=== PATIENT | male | born 1995 | race Caucasian/White ===

== ENCOUNTER 2020-04-18 04:31 | Emergency (ER) | payer OTHER ==
[~2020-04-18] VITALS: Ht 180.3 cm; Wt 129.3 kg
[2020-04-18 04:31] VITALS: BP 146/85
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
[2020-04-18 04:42] VITALS: BP 146/85
--- NOTE | 2020-04-18 04:42 | NUR ---
PATIENT BIB [employer]. PATIENT EXAMINED BY DR. ARIZA. PATIENT MEDICALLY CLEARED AND RELEASED IN CUSTODY IN STABLE CONDITION. ORIGINAL PRE-BOOK FORM GIVEN TO OFFICER Shaye HARDIN #[id number].
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
== END 2020-04-18 04:42 ==
LOC: MED 04:31
DX: Z04.3 Encounter for examination and observation following other accident (principal); Z02.89 Encounter for other administrative examinations; Y09 Assault by unspecified means
CPT/HCPCS: 99283

== ENCOUNTER 2023-03-01 15:18 | Emergency (ER) | payer OTHER ==
[~2023-03-01] VITALS: Ht 177.8 cm; Wt 113.4 kg
--- NOTE | 2023-03-01 15:37 | NUR ---
[facility] BED 10
[2023-03-01] MEDS ORDERED: LORazepam 2 MG/ML VIAL ONE (15:40)
[2023-03-01 15:41] VITALS: BP 187/108
[2023-03-01] MEDS ORDERED: LORazepam 2 MG/ML VIAL IVP ONE (15:45)
[2023-03-01] MEDS ORDERED: NACL 0.9% 1,000 ML IV ONE ×2 (15:45→16:35)
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
[2023-03-01 15:57] LABS: BASOPHILS # (AUTO) 0.1 K/uL (0.00-0.22); BASOPHILS % (AUTO) 0.5 % (0.0-2.0); EOSINOPHILS % (AUTO) 0.3 % (0.0-4.0); HEMATOCRIT 37.3 % (36-52); HEMOGLOBIN 12.6 g/dL (12.0-18.0); LYMPHOCYTES # (AUTO) 2.2 K/uL (2.0-11.5); LYMPHOCYTES % (AUTO) 19.2 % (20.5-51.1); MEAN CORPUSCULAR HEMOGLOBIN 30 pg (27-31); MEAN CORPUSCULAR HGB CONC 34 g/dL (33-37); MEAN CORPUSCULAR VOLUME 90.2 fL (80-94); MONOCYTES # (AUTO) 1.1 K/uL (0.8-1.0); MONOCYTES % (AUTO) 9.2 % (1.7-9.3); NEUTROPHILS # (AUTO) 8.3 K/uL (1.8-7.7); NEUTROPHILS % (AUTO) 70.8 % (42.2-75.2); PLATELET COUNT (AUTO) 257 K/uL (140-450); RED BLOOD CELL COUNT(AUTO) 4.14 MIL/uL (4.20-6.10); RED CELL DISTRIBUTION WIDTH 14.1 % (11.6-13.7); WHITE BLOOD COUNT (AUTO) 11.7 K/uL (4.8-10.8)
[2023-03-01 16:07] LABS: ACETONE, SERUM NEGATIVE (NEGATIVE)
[2023-03-01 16:26] LABS: ALBUMIN 3.2 g/dL (3.4-5.0); ANION GAP 11.7 (8-16); ASPARTATE AMINOTRANSFERASE 170 U/L (15-37); CHLORIDE 95 mmol/L (98-107); CREATININE 0.7 mg/dL (0.6-1.3); GFR ARICAN-AMERICAN 173 mL/min (>90); GLUCOSE 115 mg/dL (74-106); LIPASE 199 U/L (73-393); MAGNESIUM 1.6 mg/dL (1.8-2.4); PHOSPHORUS 3.9 mg/dL (2.5-4.9); POTASSIUM 3.7 mmol/L (3.5-5.1); SODIUM SERUM 133 mmol/L (136-145); TOTAL BILIRUBIN 0.7 mg/dL (0.0-1.0); UREA NITROGEN, BLOOD 3 mg/dL (7-18)
[2023-03-01] MEDS ORDERED: MAG SULF 2000 MG/WATER PREMIX 50 ML IV ONE (16:35)
[2023-03-01] MEDS ORDERED: LIB25 PO (18:06)
[2023-03-01 19:00] VITALS: BP 126/73
--- NOTE | 2023-03-01 19:00 | NUR ---
Patient discharged with v/s stable. Written and verbal after care instructions given and explained. Patient alert, oriented and verbalized understanding of instructions. Ambulatory with steady gait. All questions addressed prior to discharge. ID band removed. Patient advised to follow up with PMD. Rx of LIBRIUM given. Patient educated on indication of medication including possible reaction and side effects. Opportunity to ask questions provided and answered.
== END 2023-03-01 19:00 | disposition home or self-care (01) ==
LOC: MED 15:18
DX: F10.239 Alcohol dependence with withdrawal, unspecified (principal); E83.42 Hypomagnesemia; M62.82 Rhabdomyolysis; R74.01 Elevation of levels of liver transaminase levels; Z79.899 Other long term (current) drug therapy; Y90.9 Presence of alcohol in blood, level not specified
CPT/HCPCS: 36415; 80053; 82009; 82550; 82553; 83690; 83735; 84100; 85025; 93005; 96361; 96365; 96366; 96375; 99284; G0482; J2060; J3475; J7030

== ENCOUNTER 2023-08-22 02:00 | Inpatient (IN) | payer OTHER ==
[~2023-08-22] VITALS: Ht 180.3 cm; Wt 90.7 kg
[~2023-08-22 02:00] MED LIST: LIB25 PO
[2023-08-22 02:31] VITALS: BP 172/104; PULSE 85; RESP 17; TEMP 97.6; O2SAT 95
[2023-08-22] MEDS ORDERED: NACL 0.9% 1,000 ML IV ONE (02:45)
[2023-08-22] MEDS ORDERED: HALOPERIDOL IM 5 MG/ML VIAL IM ONE (02:45)
[2023-08-22] MEDS ORDERED: diphenhydrAMINE 50 MG/ML VIAL IVP ONE (02:45)
[2023-08-22] MEDS ORDERED: LORazepam 2 MG/ML VIAL IVP ONE (02:45)
[2023-08-22] MEDS ORDERED: LORazepam 2 MG/ML VIAL ONE (02:51)
[2023-08-22 03:33] LABS: BASOPHILS # (AUTO) 0.1 K/uL (0.00-0.22); BASOPHILS % (AUTO) 1.1 % (0.0-2.0); EOSINOPHILS % (AUTO) 0.6 % (0.0-4.0); HEMATOCRIT 46.9 % (36-52); HEMOGLOBIN 15.6 g/dL (12.0-18.0); LYMPHOCYTES # (AUTO) 2.3 K/uL (2.0-11.5); LYMPHOCYTES % (AUTO) 29.2 % (20.5-51.1); MEAN CORPUSCULAR HEMOGLOBIN 28 pg (27-31); MEAN CORPUSCULAR HGB CONC 33 g/dL (33-37); MEAN CORPUSCULAR VOLUME 83.5 fL (80-94); MONOCYTES # (AUTO) 0.4 K/uL (0.8-1.0); NEUTROPHILS # (AUTO) 5.1 K/uL (1.8-7.7); NEUTROPHILS % (AUTO) 64.1 % (42.2-75.2); PLATELET COUNT (AUTO) 272 K/uL (140-450); RED BLOOD CELL COUNT(AUTO) 5.61 MIL/uL (4.20-6.10); RED CELL DISTRIBUTION WIDTH 18.5 % (11.6-13.7); WHITE BLOOD COUNT (AUTO) 7.9 K/uL (4.8-10.8)
[2023-08-22 03:48] LABS: ALBUMIN 3.9 g/dL (3.4-5.0); ANION GAP 13.3 (8-16); CALCIUM 8.1 mg/dL (8.5-10.1); CREATININE 0.9 mg/dL (0.6-1.3); POTASSIUM 3.3 mmol/L (3.5-5.1); TOTAL PROTEIN, SERUM 7.5 g/dL (6.4-8.2)
[2023-08-22 04:16] LABS: ACETAMINOPHEN < 0.5 ug/ml (10-30); SALICYLATE < 2.8 mg/dL (2.8-20.0)
[2023-08-22] MEDS ORDERED: POTASSIUM CHLORIDE 10 MEQ TABER PO PRN (04:45)
[2023-08-22] MEDS ORDERED: HYDROcodone/APAP 5/325 MG 1 TAB TAB PO PRN (04:45)
[2023-08-22] MEDS ORDERED: ONDANSETRON 4 MG/2 ML VIAL IVP PRN (04:45)
[2023-08-22] MEDS ORDERED: ZOLPIDEM 5 MG TAB PO PRN (04:45)
[2023-08-22] MEDS ORDERED: LORazepam 1 MG TAB PO PRN ×3 (04:45→04:50)
[2023-08-22] MEDS ORDERED: NACL 0.9% 1,000 ML IV SCH (04:45)
[2023-08-22] MEDS ORDERED: MORPHINE SULFATE 4 MG/ML SYR IVP PRN (04:45)
[2023-08-22] MEDS ORDERED: ACETAMINOPHEN 325 MG TAB PO PRN (04:45)
[2023-08-22] MEDS ORDERED: KCL 20 MEQ IN 100 mL PREMIX 200 ML IV PRN (04:45)
[2023-08-22] MEDS ORDERED: MAG SULF 2000 MG/WATER PREMIX 50 ML IV PRN (04:45)
[2023-08-22] MEDS: LORazepam 1 MG TAB PO SCH ×2 (06:15→13:06)
[2023-08-22 07:30] VITALS: O2SAT 95
[2023-08-22] MEDS ORDERED: THIAMINE 100 MG TAB PO SCH (09:00)
[2023-08-22] MEDS ORDERED: MULTIVITAMIN 1 TAB PO SCH (09:00)
[2023-08-22] MEDS ORDERED: ENOXAPARIN 40 MG/0.4 ML SYR SUBQ SCH (09:00)
[2023-08-22] MEDS ORDERED: FOLIC ACID 1 MG TAB PO SCH (09:00)
[2023-08-22] MEDS: GABAPENTIN 300 MG CAP PO SCH ×2 (10:30→13:09)
[2023-08-22] MEDS ORDERED: LORA-476 PO (16:48)
[2023-08-22] MEDS ORDERED: FOLI1TAB89 PO (16:48)
[2023-08-22] MEDS ORDERED: THIA100T45 PO (16:48)
[2023-08-22 17:02] VITALS: PULSE 69; RESP 21; TEMP 98.1
[2023-08-22 17:39] VITALS: BP 132/87; PULSE 81; RESP 18; TEMP 98.4; O2SAT 99
== END 2023-08-22 17:15 | disposition home or self-care (01) | DRG 425 ==
LOC: MED 02:00 → MTU 04:47
PROVIDERS: ADMIT Hospitalist; ATTEND Hospitalist
DX: E87.6 Hypokalemia (principal); F10.239 Alcohol dependence with withdrawal, unspecified; Y90.9 Presence of alcohol in blood, level not specified; Z79.899 Other long term (current) drug therapy
CPT/HCPCS: 36415; 80053; 85025; G0480; G0482; J1200; J1630; J1650; J2060

== ENCOUNTER 2023-08-26 13:22 | Emergency (ER) | payer OTHER ==
[~2023-08-26] VITALS: Ht 185.4 cm; Wt 115.7 kg
[~2023-08-26 13:22] MED LIST changes: +FOLI1TAB89 PO; -LIB25 PO; +LORA-476 PO; +THIA100T45 PO
[2023-08-26 13:50] VITALS: BP 174/111; PULSE 102; RESP 16; TEMP 98; O2SAT 99
[2023-08-26 13:53] VITALS: BP 171/111; PULSE 106; RESP 20; TEMP 98; O2SAT 98
[2023-08-26 14:41] LABS: BASOPHILS # (AUTO) 0.1 K/uL (0.00-0.22); BASOPHILS % (AUTO) 0.7 % (0.0-2.0); EOSINOPHILS % (AUTO) 0.1 % (0.0-4.0); HEMATOCRIT 50.1 % (36-52); HEMOGLOBIN 16.9 g/dL (12.0-18.0); LYMPHOCYTES # (AUTO) 3.8 K/uL (2.0-11.5); LYMPHOCYTES % (AUTO) 38.2 % (20.5-51.1); MEAN CORPUSCULAR HEMOGLOBIN 28 pg (27-31); MEAN CORPUSCULAR HGB CONC 34 g/dL (33-37); MEAN CORPUSCULAR VOLUME 83.3 fL (80-94); MONOCYTES # (AUTO) 0.5 K/uL (0.8-1.0); NEUTROPHILS # (AUTO) 5.6 K/uL (1.8-7.7); PLATELET COUNT (AUTO) 254 K/uL (140-450); RED BLOOD CELL COUNT(AUTO) 6.02 MIL/uL (4.20-6.10); RED CELL DISTRIBUTION WIDTH 18.5 % (11.6-13.7); WHITE BLOOD COUNT (AUTO) 9.9 K/uL (4.8-10.8)
[2023-08-26 14:46] VITALS: O2SAT 98
[2023-08-26 15:11] LABS: ALBUMIN 4.2 g/dL (3.4-5.0); ANION GAP 20.7 (8-16); CALCIUM 8.2 mg/dL (8.5-10.1); CARBON DIOXIDE 23.9 mmol/L (21-32); CREATININE 0.8 mg/dL (0.6-1.3); POTASSIUM 3.6 mmol/L (3.5-5.1); TOTAL BILIRUBIN 0.7 mg/dL (0.0-1.0); TOTAL PROTEIN, SERUM 8.4 g/dL (6.4-8.2)
[2023-08-26] MEDS ORDERED: ACET-10509 PO (22:37)
== END 2023-08-26 14:49 | disposition left against medical advice (07) ==
LOC: MED 13:22
DX: F10.129 Alcohol abuse with intoxication, unspecified (principal); Z79.899 Other long term (current) drug therapy; Y90.8 Blood alcohol level of 240 mg/100 ml or more
CPT/HCPCS: 36415; 80053; 85025; 93005; 99284; G0482

== ENCOUNTER 2023-08-26 18:58 | Emergency (ER) | payer OTHER ==
[~2023-08-26] VITALS: Ht 172.7 cm; Wt 87.1 kg
[2023-08-26 19:05] VITALS: BP 125/81; PULSE 110; RESP 16; TEMP 98; O2SAT 98
[2023-08-26] MEDS ORDERED: NACL 0.9% 1,000 ML IV ONE (20:20)
[2023-08-26 20:41] LABS: BASOPHILS # (AUTO) 0.1 K/uL (0.00-0.22); EOSINOPHILS % (AUTO) 0.1 % (0.0-4.0); HEMATOCRIT 48.9 % (36-52); HEMOGLOBIN 16.2 g/dL (12.0-18.0); LYMPHOCYTES # (AUTO) 4.6 K/uL (2.0-11.5); LYMPHOCYTES % (AUTO) 36.6 % (20.5-51.1); MEAN CORPUSCULAR HEMOGLOBIN 28 pg (27-31); MEAN CORPUSCULAR HGB CONC 33 g/dL (33-37); MEAN CORPUSCULAR VOLUME 83.9 fL (80-94); MONOCYTES # (AUTO) 0.8 K/uL (0.8-1.0); MONOCYTES % (AUTO) 6.6 % (1.7-9.3); NEUTROPHILS % (AUTO) 55.7 % (42.2-75.2); PLATELET COUNT (AUTO) 245 K/uL (140-450); RED BLOOD CELL COUNT(AUTO) 5.83 MIL/uL (4.20-6.10); RED CELL DISTRIBUTION WIDTH 18.3 % (11.6-13.7); WHITE BLOOD COUNT (AUTO) 12.6 K/uL (4.8-10.8)
[2023-08-26 21:20] LABS: ALBUMIN 4.3 g/dL (3.4-5.0); ANION GAP 24.5 (8-16); CALCIUM 8.5 mg/dL (8.5-10.1); CREATININE 0.9 mg/dL (0.6-1.3); POTASSIUM 3.5 mmol/L (3.5-5.1); TOTAL BILIRUBIN 0.7 mg/dL (0.0-1.0); TOTAL PROTEIN, SERUM 8.3 g/dL (6.4-8.2)
[2023-08-26] MEDS ORDERED: KETOROLAC 30 MG/ML VIAL IM ONE (22:00)
[2023-08-26] MEDS ORDERED: LORazepam 1 MG TAB PO ONE (22:35)
[2023-08-26] MEDS ORDERED: ACET-10509 PO (22:37)
[2023-08-27 01:31] VITALS: O2SAT 98
== END 2023-08-26 22:55 | disposition home or self-care (01) ==
LOC: MED 18:58
DX: R07.89 Other chest pain (principal); F41.9 Anxiety disorder, unspecified; M25.511 Pain in right shoulder; F10.129 Alcohol abuse with intoxication, unspecified; Y90.9 Presence of alcohol in blood, level not specified; Z79.899 Other long term (current) drug therapy
CPT/HCPCS: 36415; 71045; 73030; 80053; 84484; 85025; 93005; 96372; 99285; G0482; J1885

== ENCOUNTER 2023-10-31 03:03 | Emergency (ER) | payer OTHER ==
[~2023-10-31] VITALS: Ht 182.9 cm; Wt 81.6 kg
[~2023-10-31 03:03] MED LIST changes: +ACET-10509 PO
[2023-10-31 03:06] VITALS: BP 146/94; PULSE 119; RESP 16; TEMP 97.1; O2SAT 99
[2023-10-31] MEDS ORDERED: ONDANSETRON 4 MG ODT PO ONE (06:50)
[2023-10-31] MEDS ORDERED: chlordiazePOXIDE 25 MG CAP PO ONE (06:50)
[2023-10-31] MEDS ORDERED: NACL 0.9% 1,000 ML IV ONE (06:50)
[2023-10-31 07:32] LABS: BASOPHILS # (AUTO) 0.1 K/uL (0.00-0.22); BASOPHILS % (AUTO) 0.8 % (0.0-2.0); EOSINOPHILS % (AUTO) 0.4 % (0.0-4.0); HEMATOCRIT 46.2 % (36-52); HEMOGLOBIN 15.9 g/dL (12.0-18.0); LYMPHOCYTES # (AUTO) 2.2 K/uL (2.0-11.5); LYMPHOCYTES % (AUTO) 30.1 % (20.5-51.1); MEAN CORPUSCULAR HEMOGLOBIN 30 pg (27-31); MEAN CORPUSCULAR HGB CONC 35 g/dL (33-37); MEAN CORPUSCULAR VOLUME 87.5 fL (80-94); MONOCYTES # (AUTO) 0.3 K/uL (0.8-1.0); NEUTROPHILS # (AUTO) 4.8 K/uL (1.8-7.7); NEUTROPHILS % (AUTO) 64.7 % (42.2-75.2); PLATELET COUNT (AUTO) 272 K/uL (140-450); RED BLOOD CELL COUNT(AUTO) 5.28 MIL/uL (4.20-6.10); RED CELL DISTRIBUTION WIDTH 16.9 % (11.6-13.7); WHITE BLOOD COUNT (AUTO) 7.4 K/uL (4.8-10.8)
[2023-10-31 07:49] LABS: ANION GAP 11.6 (8-16); CALCIUM 8.3 mg/dL (8.5-10.1); CARBON DIOXIDE 26.9 mmol/L (21-32); CREATININE 0.7 mg/dL (0.6-1.3); POTASSIUM 3.5 mmol/L (3.5-5.1)
[2023-10-31 07:55] LABS: ALBUMIN 3.3 g/dL (3.4-5.0); BILIRUBIN,DIRECT 0.2 mg/dL (0.0-0.3); TOTAL BILIRUBIN 0.8 mg/dL (0.0-1.0); TOTAL PROTEIN, SERUM 7.3 g/dL (6.4-8.2)
[2023-10-31] MEDS ORDERED: CHLO-836 PO (08:40)
[2023-10-31 10:46] VITALS: BP 144/88; PULSE 72; RESP 18; TEMP 98.4; O2SAT 97
== END 2023-10-31 10:46 | disposition home or self-care (01) ==
LOC: MED 03:03
DX: S62.347A Nondisplaced fracture of base of fifth metacarpal bone, left hand, initial encounter for closed fracture (principal); F10.239 Alcohol dependence with withdrawal, unspecified; E11.9 Type 2 diabetes mellitus without complications; Z79.899 Other long term (current) drug therapy; Y90.6 Blood alcohol level of 120-199 mg/100 ml; W22.8XXA Striking against or struck by other objects, initial encounter; Y92.89 Other specified places as the place of occurrence of the external cause; Y93.89 Activity, other specified; Y99.8 Other external cause status
CPT/HCPCS: 29125; 36415; 73130; 80048; 80076; 83690; 85025; 96360; 99284; G0482; J7030; Q0162

== ENCOUNTER 2023-11-02 03:55 | Emergency (ER) | payer OTHER ==
[~2023-11-02] VITALS: Ht 170.2 cm; Wt 81.6 kg
[~2023-11-02 03:55] MED LIST changes: +CHLO-836 PO
[2023-11-02 04:03] VITALS: BP 172/98; PULSE 121; RESP 20; TEMP 97.2; O2SAT 97
[2023-11-02] MEDS ORDERED: LORazepam 2 MG/ML VIAL ONE (04:17)
[2023-11-02] MEDS ORDERED: LORazepam 1 MG TAB ONE (04:17)
[2023-11-02] MEDS ORDERED: LORazepam 1 MG TAB PO ONE (04:25)
[2023-11-02] MEDS ORDERED: LORazepam 2 MG/ML VIAL IVP ONE (04:25)
[2023-11-02] MEDS ORDERED: NACL 0.9% 1,000 ML IV ONE (04:25)
[2023-11-02 05:55] LABS: BASOPHILS # (AUTO) 0.1 K/uL (0.00-0.22); BASOPHILS % (AUTO) 0.8 % (0.0-2.0); EOSINOPHILS # (AUTO) 0.1 K/uL (0-0.4); EOSINOPHILS % (AUTO) 0.9 % (0.0-4.0); HEMATOCRIT 41.3 % (36-52); HEMOGLOBIN 13.9 g/dL (12.0-18.0); LYMPHOCYTES # (AUTO) 1.9 K/uL (2.0-11.5); LYMPHOCYTES % (AUTO) 25.3 % (20.5-51.1); MEAN CORPUSCULAR HEMOGLOBIN 30 pg (27-31); MEAN CORPUSCULAR HGB CONC 34 g/dL (33-37); MEAN CORPUSCULAR VOLUME 88.4 fL (80-94); MONOCYTES # (AUTO) 0.3 K/uL (0.8-1.0); MONOCYTES % (AUTO) 4.5 % (1.7-9.3); NEUTROPHILS # (AUTO) 5.3 K/uL (1.8-7.7); NEUTROPHILS % (AUTO) 68.5 % (42.2-75.2); PLATELET COUNT (AUTO) 198 K/uL (140-450); RED BLOOD CELL COUNT(AUTO) 4.68 MIL/uL (4.20-6.10); RED CELL DISTRIBUTION WIDTH 16.5 % (11.6-13.7); WHITE BLOOD COUNT (AUTO) 7.7 K/uL (4.8-10.8)
[2023-11-02 06:17] LABS: ANION GAP 12.6 (8-16); CALCIUM 7.6 mg/dL (8.5-10.1); CARBON DIOXIDE 23.9 mmol/L (21-32); CREATININE 0.6 mg/dL (0.6-1.3); POTASSIUM 3.5 mmol/L (3.5-5.1)
[2023-11-02 06:47] LABS: ACETAMINOPHEN 1.4 ug/ml (10-30); ALANINE AMINOTRANSFERASE 24 U/L (12-78); ALBUMIN 2.7 g/dL (3.4-5.0); ALCOHOL, BLOOD 42 mg/dL (<10); ALKALINE PHOSPHATASE 80 U/L (50-136); ASPARTATE AMINOTRANSFERASE 35 U/L (15-37); BILIRUBIN,DIRECT 0.1 mg/dL (0.0-0.3); TOTAL BILIRUBIN 0.5 mg/dL (0.0-1.0); TOTAL PROTEIN, SERUM 6.1 g/dL (6.4-8.2)
[2023-11-02 06:50] LABS: SALICYLATE < 2.8 mg/dL (2.8-20.0)
[2023-11-02] MEDS ORDERED: LORA-476 PO (07:01)
[2023-11-02 07:50] VITALS: BP 131/69; PULSE 99; RESP 21; TEMP 97.9; O2SAT 95
[2023-11-02 13:34] LABS: AMPHETAMINE, URINE NEGATIVE ng/ml (NEG <=1000); BARBITURATE, URINE NEGATIVE ng/ml (NEG <=200); BENZODIAZEPINE, URINE POSITIVE ng/mL (NEG <=200); CANNABINOID, URINE POSITIVE ng/mL (NEG <=50); COCAINE, URINE NEGATIVE ng/mL (NEG <=300); PHENCYCLIDINE SCREEN,URINE NEGATIVE ng/mL (NEG <=25)
[2023-11-02 13:35] LABS: OPIATE, URINE NEGATIVE ng/mL (NEG <=2000)
== END 2023-11-02 07:50 | disposition home or self-care (01) ==
LOC: MED 03:55
DX: F10.139 Alcohol abuse with withdrawal, unspecified (principal); Z79.899 Other long term (current) drug therapy; Y90.9 Presence of alcohol in blood, level not specified
CPT/HCPCS: 36415; 80048; 80076; 80305; 85025; 96361; 96374; 99283; G0480; G0482; J2060; J7030

== ENCOUNTER 2023-11-06 06:43 | Inpatient (IN) | payer OTHER ==
[~2023-11-06] VITALS: Ht 165.1 cm; Wt 80.7 kg
[2023-11-06 06:44] VITALS: BP 153/85; PULSE 110; RESP 20; TEMP 98; O2SAT 98
[2023-11-06] MEDS ORDERED: cefTRIAXone 1,000 MG VIAL ONE (07:06)
[2023-11-06] MEDS: NACL 0.9% 1,000 ML IV ONE (07:18)
[2023-11-06] MEDS ORDERED: PANTOPRAZOLE 40 MG INJ VIAL ONE (07:35)
[2023-11-06] MEDS: PANTOPRAZOLE 40 MG INJ VIAL IVP ONE (07:41)
[2023-11-06] MEDS: MORPHINE SULFATE 2 MG/ML SYR IVP STA ×2 (07:45→09:09)
[2023-11-06 07:46] LABS: BASOPHILS # (AUTO) 0.1 K/uL (0.00-0.22); BASOPHILS % (AUTO) 1.1 % (0.0-2.0); EOSINOPHILS % (AUTO) 0.5 % (0.0-4.0); HEMATOCRIT 48.7 % (36-52); HEMOGLOBIN 16.6 g/dL (12.0-18.0); LYMPHOCYTES # (AUTO) 2.5 K/uL (2.0-11.5); MEAN CORPUSCULAR HEMOGLOBIN 30 pg (27-31); MEAN CORPUSCULAR HGB CONC 34 g/dL (33-37); MONOCYTES # (AUTO) 0.3 K/uL (0.8-1.0); MONOCYTES % (AUTO) 4.3 % (1.7-9.3); NEUTROPHILS % (AUTO) 63.1 % (42.2-75.2); PLATELET COUNT (AUTO) 274 K/uL (140-450); RED BLOOD CELL COUNT(AUTO) 5.53 MIL/uL (4.20-6.10); RED CELL DISTRIBUTION WIDTH 16.8 % (11.6-13.7)
[2023-11-06 08:03] LABS: INR 0.87 (0.8-1.2); PARTIAL THROMBOPLASTIN TIME 22.4 secs (22-35.6); PROTHROMBIN TIME 9.2 secs (10.8-13.4)
[2023-11-06] MEDS: PANTOPRAZOLE 80 MG in NACL 0.9% 100 ML IVP SCH (08:07)
[2023-11-06] MEDS ORDERED: ONDANSETRON 4 MG/2 ML VIAL IVP PRN (08:55)
[2023-11-06] MEDS ORDERED: MAGNESIUM OXIDE 400 MG TAB PO PRN (08:55)
[2023-11-06] MEDS ORDERED: POTASSIUM CHLORIDE 10 MEQ TABER PO PRN (08:55)
[2023-11-06] MEDS ORDERED: ACETAMINOPHEN 325 MG TAB PO PRN (08:55)
[2023-11-06 09:25] LABS: ANION GAP 22.8 (8-16); CALCIUM 9.1 mg/dL (8.5-10.1); CREATININE 0.8 mg/dL (0.6-1.3); POTASSIUM 3.8 mmol/L (3.5-5.1)
[2023-11-06 09:31] LABS: ALBUMIN 3.9 g/dL (3.4-5.0); TOTAL BILIRUBIN 0.6 mg/dL (0.0-1.0); TOTAL PROTEIN, SERUM 8.4 g/dL (6.4-8.2)
[2023-11-06] MEDS: MORPHINE SULFATE 4 MG/ML SYR IVP PRN (09:49)
[2023-11-06] MEDS: NACL 0.9% 1,000 ML IV SCH (10:05)
[2023-11-06] MEDS ORDERED: oxyCODONE/APAP 5/325 MG 1 TAB TAB PO PRN (11:55)
[2023-11-06] MEDS: HYDROcodone/APAP 5/325 MG 1 TAB TAB PO PRN (12:01)
[2023-11-06] MEDS: chlordiazePOXIDE 25 MG CAP PO SCH (17:19)
[2023-11-06] MEDS ORDERED: MORPHINE SULFATE 4 MG/ML SYR ONE (17:40)
[2023-11-06] MEDS: LACTULOSE 20 GM/30 ML UDC PO SCH (21:21)
[2023-11-06 21:40] VITALS: BP 144/67; PULSE 56; PULSE 61; RESP 20; TEMP 98.5; O2SAT 96
[2023-11-06] MEDS: LORazepam 1 MG TAB PO PRN (22:23)
[2023-11-07] VITALS: BP 140/71; PULSE 55; PULSE 61; RESP 20; TEMP 98.2; O2SAT 96
[2023-11-07] MEDS: PANTOPRAZOLE 40 MG INJ VIAL ONE (02:00)
[2023-11-07 04:00] VITALS: BP 134/77; PULSE 54; PULSE 61; RESP 20; TEMP 98.5; O2SAT 96
[2023-11-07 07:07] LABS: BASOPHILS % (AUTO) 0.6 % (0.0-2.0); EOSINOPHILS # (AUTO) 0.1 K/uL (0-0.4); EOSINOPHILS % (AUTO) 1.3 % (0.0-4.0); HEMATOCRIT 42.9 % (36-52); HEMOGLOBIN 14.6 g/dL (12.0-18.0); LYMPHOCYTES # (AUTO) 1.6 K/uL (2.0-11.5); LYMPHOCYTES % (AUTO) 25.5 % (20.5-51.1); MEAN CORPUSCULAR HEMOGLOBIN 30 pg (27-31); MEAN CORPUSCULAR HGB CONC 34 g/dL (33-37); MEAN CORPUSCULAR VOLUME 88.4 fL (80-94); MONOCYTES # (AUTO) 0.6 K/uL (0.8-1.0); MONOCYTES % (AUTO) 9.5 % (1.7-9.3); NEUTROPHILS % (AUTO) 63.1 % (42.2-75.2); PLATELET COUNT (AUTO) 207 K/uL (140-450); RED BLOOD CELL COUNT(AUTO) 4.85 MIL/uL (4.20-6.10); RED CELL DISTRIBUTION WIDTH 16.8 % (11.6-13.7); WHITE BLOOD COUNT (AUTO) 6.4 K/uL (4.8-10.8)
[2023-11-07 07:11] LABS: ANION GAP 14.9 (8-16); CALCIUM 8.8 mg/dL (8.5-10.1); CARBON DIOXIDE 25.9 mmol/L (21-32); CREATININE 0.6 mg/dL (0.6-1.3); POTASSIUM 3.8 mmol/L (3.5-5.1)
[2023-11-07 08:00] VITALS: BP 145/91; PULSE 71; PULSE 73; RESP 18; RESP 20; TEMP 99; O2SAT 99
[2023-11-07 12:00] VITALS: BP 138/81; PULSE 58; PULSE 67; RESP 18; TEMP 98.8; O2SAT 98
[2023-11-07] MEDS ORDERED: chlordiazePOXIDE 25 MG CAP PO SCH (13:15)
[2023-11-07 16:00] VITALS: BP 125/77; PULSE 74; PULSE 78; RESP 18; TEMP 98.5; O2SAT 98
[2023-11-07] MEDS: GABAPENTIN 100 MG CAP PO SCH (19:10)
[2023-11-07 20:00] VITALS: BP 118/66; PULSE 65; PULSE 69; RESP 17; TEMP 98.6; O2SAT 97
[2023-11-08] VITALS: BP 111/70; PULSE 47; PULSE 60; RESP 17; TEMP 98; O2SAT 99
[2023-11-08 04:00] VITALS: BP 138/96; PULSE 50; PULSE 68; RESP 17; TEMP 98.2; O2SAT 98
[2023-11-08 06:59] LABS: BASOPHILS % (AUTO) 0.7 % (0.0-2.0); EOSINOPHILS # (AUTO) 0.1 K/uL (0-0.4); HEMATOCRIT 45.7 % (36-52); HEMOGLOBIN 15.2 g/dL (12.0-18.0); LYMPHOCYTES # (AUTO) 2.1 K/uL (2.0-11.5); LYMPHOCYTES % (AUTO) 28.9 % (20.5-51.1); MEAN CORPUSCULAR HEMOGLOBIN 30 pg (27-31); MEAN CORPUSCULAR HGB CONC 33 g/dL (33-37); MEAN CORPUSCULAR VOLUME 90.2 fL (80-94); MONOCYTES # (AUTO) 0.8 K/uL (0.8-1.0); MONOCYTES % (AUTO) 11.5 % (1.7-9.3); NEUTROPHILS # (AUTO) 4.1 K/uL (1.8-7.7); NEUTROPHILS % (AUTO) 56.9 % (42.2-75.2); PLATELET COUNT (AUTO) 203 K/uL (140-450); RED BLOOD CELL COUNT(AUTO) 5.07 MIL/uL (4.20-6.10); RED CELL DISTRIBUTION WIDTH 16.7 % (11.6-13.7); WHITE BLOOD COUNT (AUTO) 7.1 K/uL (4.8-10.8)
[2023-11-08 07:28] LABS: ANION GAP 14.8 (8-16); CALCIUM 9.1 mg/dL (8.5-10.1); CARBON DIOXIDE 26.8 mmol/L (21-32); CREATININE 0.7 mg/dL (0.6-1.3); POTASSIUM 3.6 mmol/L (3.5-5.1)
[2023-11-08] MEDS ORDERED: ESCITALOPRAM 20 MG TAB PO SCH (09:00)
== END 2023-11-08 08:55 | disposition left against medical advice (07) | DRG 241 ==
LOC: MED 06:43 → MTU 08:54 → OBSVTOIN 08:54 → MTU 18:11
PROVIDERS: ADMIT Student in an Organized Health Care Education/Training Program; ATTEND Student in an Organized Health Care Education/Training Program
DX: K29.21 Alcoholic gastritis with bleeding (principal); D62 Acute posthemorrhagic anemia; E86.1 Hypovolemia; F10.10 Alcohol abuse, uncomplicated; F32.9 Major depressive disorder, single episode, unspecified; F43.10 Post-traumatic stress disorder, unspecified
CPT/HCPCS: 36415; 76705; 80048; 80053; 83690; 83735; 85025; 85610; 85730; 86886; 86900; 86901; 87081; 96365; 96375; 99291; C9113; G0482; J0696; J2270; J7060; Q0092

== ENCOUNTER 2024-01-05 05:20 | Inpatient (IN) | payer OTHER ==
[2024-01-05] VITALS (8 sets, daily range): BP systolic 128–156; BP diastolic 57–96; PULSE 51–112; RESP 18–22; TEMP 96.8–99.9; O2SAT 94–97
[~2024-01-05] VITALS: Ht 180.3 cm; Wt 97.1 kg
[2024-01-05] MEDS: NACL 0.9% 1,000 ML IV SCH ×2 (05:41→10:12)
[2024-01-05] MEDS: DIAZEPAM PFS 10 MG/2 ML SYR IVP ONE ×3 (06:01→09:03)
[2024-01-05 06:14] LABS: BASOPHILS # (AUTO) 0.1 K/uL (0.00-0.22); BASOPHILS % (AUTO) 1.8 % (0.0-2.0); EOSINOPHILS # (AUTO) 0.1 K/uL (0-0.4); EOSINOPHILS % (AUTO) 0.7 % (0.0-4.0); HEMATOCRIT 49.2 % (36-52); HEMOGLOBIN 16.8 g/dL (12.0-18.0); LYMPHOCYTES # (AUTO) 3.4 K/uL (2.0-11.5); LYMPHOCYTES % (AUTO) 46.1 % (20.5-51.1); MEAN CORPUSCULAR HEMOGLOBIN 30 pg (27-31); MEAN CORPUSCULAR HGB CONC 34 g/dL (33-37); MEAN CORPUSCULAR VOLUME 87.2 fL (80-94); MONOCYTES # (AUTO) 0.5 K/uL (0.8-1.0); MONOCYTES % (AUTO) 7.3 % (1.7-9.3); NEUTROPHILS # (AUTO) 3.2 K/uL (1.8-7.7); NEUTROPHILS % (AUTO) 44.1 % (42.2-75.2); PLATELET COUNT (AUTO) 295 K/uL (140-450); RED BLOOD CELL COUNT(AUTO) 5.65 MIL/uL (4.20-6.10); RED CELL DISTRIBUTION WIDTH 17.3 % (11.6-13.7); WHITE BLOOD COUNT (AUTO) 7.3 K/uL (4.8-10.8)
[2024-01-05 06:24] LABS: ANION GAP 19.1 (8-16); CALCIUM 8.9 mg/dL (8.5-10.1); CARBON DIOXIDE 25.7 mmol/L (21-32); CREATININE 0.8 mg/dL (0.6-1.3); POTASSIUM 3.8 mmol/L (3.5-5.1)
[2024-01-05 06:33] LABS: ALBUMIN 4.2 g/dL (3.4-5.0); BILIRUBIN,DIRECT 0.2 mg/dL (0.0-0.3); TOTAL BILIRUBIN 0.8 mg/dL (0.0-1.0); TOTAL PROTEIN, SERUM 7.5 g/dL (6.4-8.2)
[2024-01-05] MEDS: NACL 0.9% 1,000 ML IV ONE (07:00)
[2024-01-05] MEDS ORDERED: DIAZEPAM PFS 10 MG/2 ML SYR ONE (07:33)
[2024-01-05] MEDS ORDERED: ONDANSETRON 4 MG/2 ML VIAL IVP PRN (09:45)
[2024-01-05] MEDS ORDERED: ACETAMINOPHEN 325 MG TAB PO PRN (09:45)
[2024-01-05] MEDS ORDERED: KCL 20 MEQ IN 100 mL PREMIX 200 ML IV PRN (09:45)
[2024-01-05] MEDS ORDERED: POTASSIUM CHLORIDE 10 MEQ TABER PO PRN (09:45)
[2024-01-05] MEDS ORDERED: HYDROcodone/APAP 5/325 MG 1 TAB TAB PO PRN (09:45)
[2024-01-05] MEDS ORDERED: MAG SULF 2000 MG/WATER PREMIX 50 ML IV PRN (09:45)
[2024-01-05] MEDS ORDERED: MAGNESIUM OXIDE 400 MG TAB PO PRN (09:45)
[2024-01-05] MEDS: FOLIC ACID 1 MG TAB PO ONE (10:11)
[2024-01-05] MEDS: LORazepam 1 MG TAB PO PRN (11:09)
[2024-01-05] MEDS: chlordiazePOXIDE 25 MG CAP PO SCH (12:20)
[2024-01-05] MEDS: MEDS-TO-BEDS MC SCH (20:14)
[2024-01-06] VITALS: BP 129/74; PULSE 57; PULSE 59; RESP 18; TEMP 97.6; O2SAT 96
[2024-01-06 04:00] VITALS: BP 131/84; PULSE 43; PULSE 54; RESP 18; TEMP 97; O2SAT 97
[2024-01-06 06:56] LABS: BASOPHILS # (AUTO) 0.1 K/uL (0.00-0.22); BASOPHILS % (AUTO) 1.1 % (0.0-2.0); EOSINOPHILS # (AUTO) 0.1 K/uL (0-0.4); EOSINOPHILS % (AUTO) 1.4 % (0.0-4.0); HEMOGLOBIN 14.9 g/dL (12.0-18.0); LYMPHOCYTES # (AUTO) 2.4 K/uL (2.0-11.5); LYMPHOCYTES % (AUTO) 31.6 % (20.5-51.1); MEAN CORPUSCULAR HEMOGLOBIN 30 pg (27-31); MEAN CORPUSCULAR HGB CONC 34 g/dL (33-37); MEAN CORPUSCULAR VOLUME 89.2 fL (80-94); MONOCYTES # (AUTO) 0.9 K/uL (0.8-1.0); MONOCYTES % (AUTO) 11.2 % (1.7-9.3); NEUTROPHILS # (AUTO) 4.2 K/uL (1.8-7.7); NEUTROPHILS % (AUTO) 54.7 % (42.2-75.2); PLATELET COUNT (AUTO) 226 K/uL (140-450); RED BLOOD CELL COUNT(AUTO) 4.93 MIL/uL (4.20-6.10); RED CELL DISTRIBUTION WIDTH 17.2 % (11.6-13.7); WHITE BLOOD COUNT (AUTO) 7.7 K/uL (4.8-10.8)
[2024-01-06 08:00] VITALS: BP 144/78; PULSE 59; PULSE 81; RESP 18; TEMP 97.7; O2SAT 100
[2024-01-06] MEDS: THIAMINE 100 MG TAB PO SCH (08:23)
[2024-01-06] MEDS: MULTIVITAMIN 1 TAB PO SCH (08:23)
[2024-01-06 10:29] LABS: ANION GAP 17.6 (8-16); CALCIUM 8.8 mg/dL (8.5-10.1); CARBON DIOXIDE 24.5 mmol/L (21-32); CREATININE 0.6 mg/dL (0.6-1.3); POTASSIUM 4.1 mmol/L (3.5-5.1)
== END 2024-01-06 11:05 | disposition left against medical advice (07) | DRG 816 ==
LOC: MED 05:20 → MTU 09:45
PROVIDERS: ADMIT Hospitalist; ATTEND Hospitalist
DX: T51.0X1A Toxic effect of ethanol, accidental (unintentional), initial encounter (principal); G92.8 Other toxic encephalopathy; F10.229 Alcohol dependence with intoxication, unspecified; Z79.899 Other long term (current) drug therapy; Z53.29 Procedure and treatment not carried out because of patient's decision for other reasons; Y92.9 Unspecified place or not applicable
CPT/HCPCS: 36415; 80048; 80076; 83690; 83735; 84100; 84484; 85025; 87081; 93005; 96374; 99285; G0482; J1644; J3360

== ENCOUNTER 2024-03-03 05:25 | Emergency (ER) | payer OTHER ==
[~2024-03-03] VITALS: Ht 172.7 cm; Wt 81.6 kg
[~2024-03-03 05:25] MED LIST changes: +CHLO-757 PO; -CHLO-836 PO
[2024-03-03 05:30] VITALS: BP 175/126; PULSE 138; RESP 35; TEMP 97.8; O2SAT 97
[2024-03-03] MEDS ORDERED: PHENobarbital 65 MG/ML VIAL IV ONE (05:35)
[2024-03-03] MEDS ORDERED: LORazepam 2 MG/ML VIAL ONE (05:40)
[2024-03-03] MEDS: LORazepam 2 MG/ML VIAL IVP ONE (05:48)
[2024-03-03 05:55] VITALS: O2SAT 95
[2024-03-03 06:35] LABS: BASOPHILS # (AUTO) 0.1 K/uL (0.00-0.22); BASOPHILS % (AUTO) 0.8 % (0.0-2.0); EOSINOPHILS % (AUTO) 0.3 % (0.0-4.0); HEMATOCRIT 46.6 % (36-52); HEMOGLOBIN 16.1 g/dL (12.0-18.0); LYMPHOCYTES # (AUTO) 1.9 K/uL (2.0-11.5); LYMPHOCYTES % (AUTO) 23.3 % (20.5-51.1); MEAN CORPUSCULAR HEMOGLOBIN 31 pg (27-31); MEAN CORPUSCULAR HGB CONC 35 g/dL (33-37); MEAN CORPUSCULAR VOLUME 88.9 fL (80-94); MONOCYTES # (AUTO) 0.3 K/uL (0.8-1.0); MONOCYTES % (AUTO) 4.1 % (1.7-9.3); NEUTROPHILS # (AUTO) 5.9 K/uL (1.8-7.7); NEUTROPHILS % (AUTO) 71.5 % (42.2-75.2); PLATELET COUNT (AUTO) 262 K/uL (140-450); RED BLOOD CELL COUNT(AUTO) 5.25 MIL/uL (4.20-6.10); RED CELL DISTRIBUTION WIDTH 16.7 % (11.6-13.7); WHITE BLOOD COUNT (AUTO) 8.2 K/uL (4.8-10.8)
[2024-03-03 06:52] LABS: ANION GAP 19.8 (8-16); CALCIUM 8.6 mg/dL (8.5-10.1); CARBON DIOXIDE 24.2 mmol/L (21-32); CREATININE 0.8 mg/dL (0.6-1.3)
[2024-03-03 06:59] LABS: ALBUMIN 3.8 g/dL (3.4-5.0); BILIRUBIN,DIRECT 0.2 mg/dL (0.0-0.3); TOTAL BILIRUBIN 0.7 mg/dL (0.0-1.0)
[2024-03-03] MEDS ORDERED: CHLO-757 PO (07:22)
[2024-03-03] MEDS: NACL 0.9% 1,000 ML IV ONE (07:26)
[2024-03-03 07:30] VITALS: BP 122/62; PULSE 89; RESP 20; TEMP 97.9; O2SAT 97
== END 2024-03-03 07:30 | disposition home or self-care (01) ==
LOC: MED 05:25
DX: F10.239 Alcohol dependence with withdrawal, unspecified (principal); Y90.6 Blood alcohol level of 120-199 mg/100 ml; Z79.1 Long term (current) use of non-steroidal anti-inflammatories (NSAID); Z79.899 Other long term (current) drug therapy
CPT/HCPCS: 36415; 80048; 80076; 83690; 85025; 96361; 96374; 99291; G0482; J2060; J2560

== ENCOUNTER 2024-03-05 11:04 | Emergency (ER) | payer OTHER ==
[~2024-03-05] VITALS: Ht 180.3 cm; Wt 102.1 kg
[2024-03-05 11:10] VITALS: BP 214/134; PULSE 110; RESP 22; TEMP 98.3; O2SAT 95
[2024-03-05 11:25] VITALS: BP 214/134; PULSE 110; RESP 22; TEMP 98.3; O2SAT 95
[2024-03-05 11:39] LABS: BASOPHILS # (AUTO) 0.1 K/uL (0.00-0.22); EOSINOPHILS % (AUTO) 0.3 % (0.0-4.0); HEMATOCRIT 49.6 % (36-52); HEMOGLOBIN 17.2 g/dL (12.0-18.0); LYMPHOCYTES # (AUTO) 2.9 K/uL (2.0-11.5); LYMPHOCYTES % (AUTO) 39.3 % (20.5-51.1); MEAN CORPUSCULAR HEMOGLOBIN 31 pg (27-31); MEAN CORPUSCULAR HGB CONC 35 g/dL (33-37); MEAN CORPUSCULAR VOLUME 88.4 fL (80-94); MONOCYTES # (AUTO) 0.3 K/uL (0.8-1.0); MONOCYTES % (AUTO) 4.1 % (1.7-9.3); NEUTROPHILS # (AUTO) 4.1 K/uL (1.8-7.7); NEUTROPHILS % (AUTO) 55.3 % (42.2-75.2); PLATELET COUNT (AUTO) 300 K/uL (140-450); RED CELL DISTRIBUTION WIDTH 16.6 % (11.6-13.7); WHITE BLOOD COUNT (AUTO) 7.4 K/uL (4.8-10.8)
[2024-03-05 11:57] LABS: ANION GAP 17.9 (8-16); CALCIUM 8.9 mg/dL (8.5-10.1); CARBON DIOXIDE 27.1 mmol/L (21-32); CREATININE 0.8 mg/dL (0.6-1.3)
[2024-03-05 12:02] LABS: INR 0.9 (0.8-1.2); PARTIAL THROMBOPLASTIN TIME 24.5 secs (22-35.6); PROTHROMBIN TIME 9.4 secs (10.8-13.4)
[2024-03-05 12:18] LABS: ALANINE AMINOTRANSFERASE 35 U/L (12-78); ALBUMIN 4.2 g/dL (3.4-5.0); ALCOHOL, BLOOD 366 mg/dL (<10); ALKALINE PHOSPHATASE 100 U/L (50-136); ASPARTATE AMINOTRANSFERASE 67 U/L (15-37); BILIRUBIN,DIRECT 0.1 mg/dL (0.0-0.3); LIPASE 186 U/L (16-77); TOTAL BILIRUBIN 0.9 mg/dL (0.0-1.0)
[2024-03-05] MEDS ORDERED: KETOROLAC 30 MG/ML VIAL ONE (13:40)
[2024-03-05] MEDS ORDERED: ONDANSETRON 4 MG/2 ML VIAL ONE (13:41)
[2024-03-05] MEDS: KETOROLAC 30 MG/ML VIAL IVP ONE (13:42)
[2024-03-05] MEDS: ONDANSETRON 4 MG/2 ML VIAL IVP ONE (13:42)
[2024-03-05 14:02] LABS: APPEARANCE,URINE CLEAR (CLEAR); BILIRUBIN,URINE NEGATIVE (NEGATIVE); BLOOD, URINE NEGATIVE (NEGATIVE); COLOR,URINE YELLOW (YELLOW); LEUKOCYTE ESTERASE ,URINE NEGATIVE (NEGATIVE); NITRITE, URINE NEGATIVE (NEGATIVE); PROTEIN,URINE NEGATIVE (NEGATIVE); UGLUCOSE NEGATIVE (NEGATIVE); UROBILINOGEN,URINE 0.2 EU/dL (0.2 - 1)
[2024-03-05] MEDS: NACL 0.9% 1,000 ML IV ONE (14:05)
[2024-03-05 14:13] LABS: AMPHETAMINE, URINE NEGATIVE ng/ml (NEG <=1000); BARBITURATE, URINE NEGATIVE ng/ml (NEG <=200); BENZODIAZEPINE, URINE NEGATIVE ng/mL (NEG <=200); CANNABINOID, URINE POSITIVE ng/mL (NEG <=50); COCAINE, URINE NEGATIVE ng/mL (NEG <=300); OPIATE, URINE NEGATIVE ng/mL (NEG <=2000); PHENCYCLIDINE SCREEN,URINE NEGATIVE ng/mL (NEG <=25)
[2024-03-06] MEDS ORDERED: CHLO25CA PO (12:51)
== END 2024-03-05 14:05 | disposition left against medical advice (07) ==
LOC: MED 11:04
DX: F10.129 Alcohol abuse with intoxication, unspecified (principal); R07.89 Other chest pain; R10.11 Right upper quadrant pain; I10 Essential (primary) hypertension; Z79.899 Other long term (current) drug therapy; Z79.1 Long term (current) use of non-steroidal anti-inflammatories (NSAID); Y90.8 Blood alcohol level of 240 mg/100 ml or more
CPT/HCPCS: 36415; 70450; 71045; 71275; 74174; 80048; 80076; 80305; 81003; 83690; 84484; 85025; 85610; 85730; 86886; 86900; 86901; 96374; 96375; 99285; G0482; J1885; J2405; Q9967

== ENCOUNTER 2024-03-06 11:21 | Emergency (ER) | payer OTHER ==
[~2024-03-06] VITALS: Ht 180.3 cm; Wt 90.7 kg
[2024-03-06 11:32] VITALS: BP 157/98; PULSE 100; RESP 18; TEMP 98.5; O2SAT 96
[2024-03-06] MEDS: NACL 0.9% 1,000 ML IV ONE (12:01)
[2024-03-06 12:12] LABS: BASOPHILS # (AUTO) 0.1 K/uL (0.00-0.22); BASOPHILS % (AUTO) 0.8 % (0.0-2.0); EOSINOPHILS % (AUTO) 0.2 % (0.0-4.0); HEMATOCRIT 48.2 % (36-52); HEMOGLOBIN 16.5 g/dL (12.0-18.0); LYMPHOCYTES # (AUTO) 2.6 K/uL (2.0-11.5); MEAN CORPUSCULAR HEMOGLOBIN 31 pg (27-31); MEAN CORPUSCULAR HGB CONC 34 g/dL (33-37); MEAN CORPUSCULAR VOLUME 88.8 fL (80-94); MONOCYTES # (AUTO) 0.2 K/uL (0.8-1.0); MONOCYTES % (AUTO) 3.5 % (1.7-9.3); NEUTROPHILS # (AUTO) 4.1 K/uL (1.8-7.7); NEUTROPHILS % (AUTO) 58.5 % (42.2-75.2); PLATELET COUNT (AUTO) 264 K/uL (140-450); RED BLOOD CELL COUNT(AUTO) 5.43 MIL/uL (4.20-6.10); RED CELL DISTRIBUTION WIDTH 16.4 % (11.6-13.7)
[2024-03-06 12:22] LABS: CALCIUM 8.6 mg/dL (8.5-10.1); CARBON DIOXIDE 26.8 mmol/L (21-32); CREATININE 0.8 mg/dL (0.6-1.3); POTASSIUM 3.8 mmol/L (3.5-5.1)
[2024-03-06] MEDS: HALOPERIDOL IM 5 MG/ML VIAL IM ONE (12:23)
[2024-03-06 12:30] LABS: LIPASE 60 U/L (16-77)
[2024-03-06 12:38] LABS: ALCOHOL, BLOOD 404 mg/dL (<10)
[2024-03-06] MEDS ORDERED: CHLO25CA PO (12:51)
[2024-03-06 13:45] LABS: AMPHETAMINE, URINE NEGATIVE ng/ml (NEG <=1000); BARBITURATE, URINE NEGATIVE ng/ml (NEG <=200); BENZODIAZEPINE, URINE NEGATIVE ng/mL (NEG <=200); CANNABINOID, URINE POSITIVE ng/mL (NEG <=50); COCAINE, URINE NEGATIVE ng/mL (NEG <=300); OPIATE, URINE NEGATIVE ng/mL (NEG <=2000); PHENCYCLIDINE SCREEN,URINE NEGATIVE ng/mL (NEG <=25)
[2024-03-06] MEDS ORDERED: ONDANSETRON 4 MG/2 ML VIAL IVP PRN (14:20)
[2024-03-06] MEDS ORDERED: LACTATED RINGERS 1,000 ML IV SCH (14:20)
[2024-03-06] MEDS ORDERED: LORazepam 1 MG TAB PO PRN (14:20)
[2024-03-06 14:45] VITALS: BP 148/90; PULSE 72; RESP 21; TEMP 97.6; O2SAT 94
[2024-03-06] MEDS ORDERED: LORazepam 1 MG TAB PO SCH (21:00)
[2024-03-07] MEDS ORDERED: FOLIC ACID 1 MG TAB PO SCH (09:00)
[2024-03-07] MEDS ORDERED: THIAMINE 100 MG TAB PO SCH (09:00)
== END 2024-03-06 14:45 | disposition left against medical advice (07) ==
LOC: MED 11:21
DX: F10.129 Alcohol abuse with intoxication, unspecified (principal); I10 Essential (primary) hypertension; F17.200 Nicotine dependence, unspecified, uncomplicated; F12.90 Cannabis use, unspecified, uncomplicated; Y90.9 Presence of alcohol in blood, level not specified
CPT/HCPCS: 36415; 80048; 80305; 83690; 84484; 85025; 93005; 96360; 96372; 99284; G0482; J1630; J7030

== ENCOUNTER 2024-03-06 20:05 | Inpatient (IN) | payer OTHER ==
[~2024-03-06] VITALS: Ht 182.9 cm; Wt 90.7 kg
[~2024-03-06 20:05] MED LIST changes: +CHLO25CA PO
[2024-03-06 20:24] VITALS: BP 149/82; PULSE 98; RESP 16; TEMP 98; O2SAT 99
[2024-03-06] MEDS: NACL 0.9% 2,000 ML IV ONE (21:45)
[2024-03-06 22:53] LABS: BASOPHILS # (AUTO) 0.1 K/uL (0.00-0.22); BASOPHILS % (AUTO) 0.7 % (0.0-2.0); EOSINOPHILS % (AUTO) 0.3 % (0.0-4.0); HEMATOCRIT 43.9 % (36-52); HEMOGLOBIN 14.8 g/dL (12.0-18.0); LYMPHOCYTES # (AUTO) 3.3 K/uL (2.0-11.5); LYMPHOCYTES % (AUTO) 32.1 % (20.5-51.1); MEAN CORPUSCULAR HEMOGLOBIN 30 pg (27-31); MEAN CORPUSCULAR HGB CONC 34 g/dL (33-37); MEAN CORPUSCULAR VOLUME 89.6 fL (80-94); MONOCYTES # (AUTO) 0.3 K/uL (0.8-1.0); MONOCYTES % (AUTO) 3.3 % (1.7-9.3); NEUTROPHILS # (AUTO) 6.5 K/uL (1.8-7.7); NEUTROPHILS % (AUTO) 63.6 % (42.2-75.2); PLATELET COUNT (AUTO) 217 K/uL (140-450); WHITE BLOOD COUNT (AUTO) 10.3 K/uL (4.8-10.8)
[2024-03-06 23:01] LABS: CARBON DIOXIDE 22.5 mmol/L (21-32); CREATININE 0.8 mg/dL (0.6-1.3); POTASSIUM 3.5 mmol/L (3.5-5.1)
[2024-03-06 23:06] LABS: ALBUMIN 3.5 g/dL (3.4-5.0); BILIRUBIN,DIRECT 0.2 mg/dL (0.0-0.3); TOTAL BILIRUBIN 0.8 mg/dL (0.0-1.0); TOTAL PROTEIN, SERUM 6.4 g/dL (6.4-8.2)
[2024-03-07] MEDS ORDERED: ONDANSETRON 4 MG/2 ML VIAL IVP PRN (05:55)
[2024-03-07] MEDS ORDERED: MAGNESIUM OXIDE 400 MG TAB PO PRN (05:55)
[2024-03-07] MEDS ORDERED: POTASSIUM CHLORIDE 10 MEQ TABER PO PRN (05:55)
[2024-03-07] MEDS ORDERED: ACETAMINOPHEN 325 MG TAB PO PRN (05:55)
[2024-03-07] MEDS: FOLIC ACID 1 MG TAB PO ONE (06:13)
[2024-03-07] MEDS: NACL 0.9% 1,000 ML IV SCH (06:19)
[2024-03-07] MEDS: LORazepam 1 MG TAB PO PRN (06:46)
[2024-03-07 07:45] VITALS: O2SAT 99
[2024-03-07 09:30] VITALS: BP 125/75; PULSE 82; PULSE 84; RESP 18; RESP 20; TEMP 98.2; O2SAT 95; O2SAT 96
[2024-03-07 09:32] VITALS: PULSE 96
[2024-03-07] MEDS: MULTIVITAMIN 1 TAB PO SCH (11:10)
[2024-03-07] MEDS: THIAMINE 100 MG TAB PO SCH (11:10)
[2024-03-07 16:00] VITALS: BP 138/66; PULSE 102; PULSE 95; PULSE 96; RESP 18; TEMP 98.3; O2SAT 96
[2024-03-07] MEDS: HYDROcodone/APAP 5/325 MG 1 TAB TAB PO PRN (19:49)
[2024-03-07 20:00] VITALS: BP 132/67; PULSE 77; RESP 18; TEMP 98.4; O2SAT 96; O2SAT 98
[2024-03-07] MEDS: MEDS-TO-BEDS MC SCH (20:36)
[2024-03-08] VITALS: BP 135/61; PULSE 56; PULSE 72; RESP 16; TEMP 98.4; O2SAT 97
[2024-03-08 04:00] VITALS: BP 132/70; PULSE 64; PULSE 65; RESP 17; TEMP 98.4; O2SAT 96
[2024-03-08 07:09] LABS: BASOPHILS # (AUTO) 0.1 K/uL (0.00-0.22); BASOPHILS % (AUTO) 0.7 % (0.0-2.0); EOSINOPHILS # (AUTO) 0.1 K/uL (0-0.4); EOSINOPHILS % (AUTO) 1.6 % (0.0-4.0); HEMATOCRIT 42.6 % (36-52); HEMOGLOBIN 14.9 g/dL (12.0-18.0); LYMPHOCYTES # (AUTO) 1.7 K/uL (2.0-11.5); LYMPHOCYTES % (AUTO) 23.7 % (20.5-51.1); MEAN CORPUSCULAR HEMOGLOBIN 31 pg (27-31); MEAN CORPUSCULAR HGB CONC 35 g/dL (33-37); MEAN CORPUSCULAR VOLUME 88.6 fL (80-94); MONOCYTES # (AUTO) 0.6 K/uL (0.8-1.0); MONOCYTES % (AUTO) 8.4 % (1.7-9.3); NEUTROPHILS # (AUTO) 4.6 K/uL (1.8-7.7); NEUTROPHILS % (AUTO) 65.6 % (42.2-75.2); PLATELET COUNT (AUTO) 186 K/uL (140-450); RED BLOOD CELL COUNT(AUTO) 4.81 MIL/uL (4.20-6.10); RED CELL DISTRIBUTION WIDTH 15.5 % (11.6-13.7)
[2024-03-08 07:41] LABS: ALBUMIN 3.5 g/dL (3.4-5.0); ANION GAP 14.2 (8-16); CARBON DIOXIDE 26.4 mmol/L (21-32); CREATININE 0.6 mg/dL (0.6-1.3); PHOSPHORUS 3.2 mg/dL (2.5-4.9); POTASSIUM 3.6 mmol/L (3.5-5.1); TOTAL BILIRUBIN 2.2 mg/dL (0.0-1.0); TOTAL PROTEIN, SERUM 6.7 g/dL (6.4-8.2)
[2024-03-08 08:00] VITALS: BP 146/89; PULSE 53; PULSE 89; RESP 20; TEMP 98; O2SAT 96
[2024-03-08 12:00] VITALS: BP 137/92; PULSE 69; PULSE 71; RESP 20; TEMP 98.4; O2SAT 97
[2024-03-08] MEDS ORDERED: LORA-476 PO (15:30)
[2024-03-08 15:38] VITALS: BP 146/73; PULSE 81; RESP 18; TEMP 37; O2SAT 94
[2024-03-08 15:43] VITALS: PULSE 69
== END 2024-03-08 16:29 | disposition home or self-care (01) | DRG 241 ==
LOC: MED 20:05 → MTU 03-07 05:54
PROVIDERS: ADMIT Hospitalist; ATTEND Hospitalist
DX: K29.20 Alcoholic gastritis without bleeding (principal); G92.8 Other toxic encephalopathy; E87.20 Acidosis, unspecified; T51.0X1A Toxic effect of ethanol, accidental (unintentional), initial encounter; F10.229 Alcohol dependence with intoxication, unspecified; I10 Essential (primary) hypertension; F10.239 Alcohol dependence with withdrawal, unspecified; Z79.899 Other long term (current) drug therapy; Y92.9 Unspecified place or not applicable
CPT/HCPCS: 36415; 70450; 80048; 80053; 80076; 83690; 83735; 84100; 85025; 87081; 96360; 99285; G0482; J1644

== ENCOUNTER 2024-03-27 16:40 | Emergency (ER) | payer OTHER ==
[~2024-03-27] VITALS: Ht 172.7 cm; Wt 81.6 kg
[2024-03-27 16:49] VITALS: BP 138/80; PULSE 120; RESP 20; TEMP 98.3; O2SAT 99
[2024-03-27 19:21] VITALS: BP 128/77; PULSE 72; RESP 12; TEMP 98.5; O2SAT 97
== END 2024-03-27 19:21 | disposition home or self-care (01) ==
LOC: MED 16:40
DX: F10.129 Alcohol abuse with intoxication, unspecified (principal); F12.90 Cannabis use, unspecified, uncomplicated; I10 Essential (primary) hypertension; F32.A Depression, unspecified; F41.9 Anxiety disorder, unspecified; Z79.899 Other long term (current) drug therapy; Y90.8 Blood alcohol level of 240 mg/100 ml or more
CPT/HCPCS: 36415; 82948; 93005; 99284; G0482

== ENCOUNTER 2024-05-24 13:10 | Inpatient (IN) | payer OTHER ==
[2024-05-23 23:59] VITALS: PULSE 69
[~2024-05-24] VITALS: Ht 180.3 cm; Wt 90.7 kg
[~2024-05-24 13:10] MED LIST changes: -ACET-10509 PO; +ACET500T99 PO
[2024-05-24 13:20] VITALS: BP 178/103; PULSE 130; RESP 25; TEMP 97.7; O2SAT 98
[2024-05-24] MEDS: LORazepam 2 MG/ML VIAL IVP ONE (13:33)
[2024-05-24] MEDS: PANTOPRAZOLE 40 MG INJ VIAL IVP ONE (13:38)
[2024-05-24 13:41] LABS: BASOPHILS % (AUTO) 0.5 % (0.0-2.0); EOSINOPHILS % (AUTO) 0.1 % (0.0-4.0); HEMATOCRIT 48.7 % (36-52); HEMOGLOBIN 16.5 g/dL (12.0-18.0); LYMPHOCYTES # (AUTO) 1.9 K/uL (2.0-11.5); LYMPHOCYTES % (AUTO) 25.3 % (20.5-51.1); MEAN CORPUSCULAR HEMOGLOBIN 30 pg (27-31); MEAN CORPUSCULAR HGB CONC 34 g/dL (33-37); MEAN CORPUSCULAR VOLUME 88.7 fL (80-94); MONOCYTES # (AUTO) 0.3 K/uL (0.8-1.0); MONOCYTES % (AUTO) 4.6 % (1.7-9.3); NEUTROPHILS # (AUTO) 5.1 K/uL (1.8-7.7); NEUTROPHILS % (AUTO) 69.5 % (42.2-75.2); PLATELET COUNT (AUTO) 248 K/uL (140-450); RED BLOOD CELL COUNT(AUTO) 5.49 MIL/uL (4.20-6.10); RED CELL DISTRIBUTION WIDTH 16.3 % (11.6-13.7); WHITE BLOOD COUNT (AUTO) 7.3 K/uL (4.8-10.8)
[2024-05-24] MEDS: NACL 0.9% 1,000 ML IV ONE (13:41)
[2024-05-24 13:50] LABS: ANION GAP 22.4 (8-16); CARBON DIOXIDE 22.7 mmol/L (21-32); POTASSIUM 3.1 mmol/L (3.5-5.1)
[2024-05-24 13:55] LABS: ACETONE, SERUM Negative (NEGATIVE)
[2024-05-24 14:09] LABS: ALANINE AMINOTRANSFERASE 70 U/L (12-78); ALBUMIN 4.3 g/dL (3.4-5.0); ALCOHOL, BLOOD 387 mg/dL (<10); ALKALINE PHOSPHATASE 103 U/L (50-136); ASPARTATE AMINOTRANSFERASE 139 U/L (15-37); BILIRUBIN,DIRECT 0.3 mg/dL (0.0-0.3); LIPASE 121 U/L (16-77); TOTAL BILIRUBIN 1.1 mg/dL (0.0-1.0); TOTAL PROTEIN, SERUM 8.2 g/dL (6.4-8.2)
[2024-05-24 14:37] LABS: CKMB RELATIVE INDEX 0.4 (0.0-2.5); CREATINE KINASE MB 10.6 ng/mL (0-3.6)
[2024-05-24] MEDS: POTASSIUM CHLORIDE 10 MEQ TABER PO ONE (15:46)
[2024-05-24] MEDS ORDERED: ONDANSETRON 4 MG/2 ML VIAL IVP PRN (17:35)
[2024-05-24] MEDS ORDERED: LORazepam 1 MG TAB PO PRN ×2 (17:35)
[2024-05-24] MEDS: LORazepam 1 MG TAB PO SCH (18:25)
[2024-05-24] MEDS: NACL 0.9% 1,000 ML IV SCH (18:28)
[2024-05-24 22:01] VITALS: PULSE 120
[2024-05-24 22:15] VITALS: BP 174/100; PULSE 110; RESP 22; TEMP 97.4; O2SAT 97
[2024-05-24] MEDS: CLONIDINE HYDROCHLORIDE 0.1 MG TAB PO ONE (22:19)
[2024-05-24] MEDS: GABAPENTIN 300 MG CAP PO ONE (22:19)
[2024-05-24 23:59] VITALS: PULSE 69
[2024-05-25 03:59] VITALS: PULSE 66
[2024-05-25 04:00] VITALS: BP 131/74; PULSE 66; RESP 22; TEMP 98.6; O2SAT 97
[2024-05-25 08:00] VITALS: BP_SYST 139; BP_SYST 149; BP_DIAS 79; BP_DIAS 81; PULSE 61; PULSE 62; PULSE 69; PULSE 71; PULSE 76; RESP 18; RESP 22; TEMP 97.2; TEMP 97.8; O2SAT 96; O2SAT 97
[2024-05-25] MEDS: THIAMINE 100 MG TAB PO SCH (09:05)
[2024-05-25] MEDS: MULTIVITAMIN 1 TAB PO SCH (09:05)
[2024-05-25] MEDS: FOLIC ACID 1 MG TAB PO SCH (09:05)
[2024-05-25] MEDS: GABAPENTIN 300 MG CAP PO SCH (09:05)
[2024-05-25] MEDS: CLONIDINE HYDROCHLORIDE 0.1 MG TAB PO SCH (09:06)
[2024-05-25 11:32] LABS: APPEARANCE,URINE CLEAR (CLEAR); BILIRUBIN,URINE 1+ (NEGATIVE); BLOOD, URINE NEGATIVE (NEGATIVE); COLOR,URINE YELLOW (YELLOW); LEUKOCYTE ESTERASE ,URINE TRACE (NEGATIVE); NITRITE, URINE NEGATIVE (NEGATIVE); PROTEIN,URINE TRACE (NEGATIVE); UGLUCOSE TRACE (NEGATIVE); UROBILINOGEN,URINE >=8.0 EU/dL (0.2 - 1)
[2024-05-25 11:44] LABS: AMPHETAMINE, URINE NEGATIVE ng/ml (NEG <=1000); BARBITURATE, URINE NEGATIVE ng/ml (NEG <=200); BENZODIAZEPINE, URINE POSITIVE ng/mL (NEG <=200); CANNABINOID, URINE POSITIVE ng/mL (NEG <=50); COCAINE, URINE NEGATIVE ng/mL (NEG <=300); OPIATE, URINE NEGATIVE ng/mL (NEG <=2000); PHENCYCLIDINE SCREEN,URINE NEGATIVE ng/mL (NEG <=25)
[2024-05-25 11:46] LABS: ICTOTEST NEGATIVE (NEGATIVE)
[2024-05-25 11:47] LABS: BACTERIA,URINE 1+ /HPF (None Seen); MUCUS,URINE 1+ /LPF (None Seen); RBC,URINE 0-5 /HPF (0-5); SQUAMOUS EPITHELIAL CELL,UR 0-3 (FEW) /LPF (0-3 (FEW)); WBC,URINE 0-5 /HPF (0-5)
[2024-05-25 12:20] VITALS: BP 139/79; PULSE 69; PULSE 76; RESP 18; TEMP 97.8; O2SAT 96
[2024-05-25 16:30] VITALS: BP 125/79; PULSE 81; RESP 18; TEMP 98.6; O2SAT 99
[2024-05-25] MEDS: POTASSIUM CHLORIDE 10 MEQ TABER PO ONE ×2 (18:45→18:46)
[2024-05-25 20:00] VITALS: BP 138/82; PULSE 80; RESP 18; TEMP 97.1; O2SAT 97
[2024-05-25] MEDS: MEDS-TO-BEDS MC SCH (21:06)
[2024-05-26 04:00] VITALS: BP 125/87; PULSE 60; RESP 19; TEMP 97; O2SAT 97
[2024-05-26 06:33] LABS: BASOPHILS % (AUTO) 0.3 % (0.0-2.0); EOSINOPHILS # (AUTO) 0.2 K/uL (0-0.4); EOSINOPHILS % (AUTO) 2.6 % (0.0-4.0); HEMATOCRIT 42.5 % (36-52); HEMOGLOBIN 14.1 g/dL (12.0-18.0); LYMPHOCYTES # (AUTO) 1.4 K/uL (2.0-11.5); MEAN CORPUSCULAR HEMOGLOBIN 30 pg (27-31); MEAN CORPUSCULAR HGB CONC 33 g/dL (33-37); MEAN CORPUSCULAR VOLUME 90.9 fL (80-94); MONOCYTES # (AUTO) 0.4 K/uL (0.8-1.0); MONOCYTES % (AUTO) 6.7 % (1.7-9.3); NEUTROPHILS # (AUTO) 4.5 K/uL (1.8-7.7); NEUTROPHILS % (AUTO) 69.4 % (42.2-75.2); PLATELET COUNT (AUTO) 148 K/uL (140-450); RED BLOOD CELL COUNT(AUTO) 4.68 MIL/uL (4.20-6.10); RED CELL DISTRIBUTION WIDTH 15.8 % (11.6-13.7); WHITE BLOOD COUNT (AUTO) 6.4 K/uL (4.8-10.8)
[2024-05-26 07:48] LABS: ALBUMIN 3.3 g/dL (3.4-5.0); ANION GAP 12.2 (8-16); CALCIUM 8.8 mg/dL (8.5-10.1); CARBON DIOXIDE 26.8 mmol/L (21-32); CREATININE 0.8 mg/dL (0.6-1.3); TOTAL BILIRUBIN 1.6 mg/dL (0.0-1.0); TOTAL PROTEIN, SERUM 6.9 g/dL (6.4-8.2)
[2024-05-26 08:00] VITALS: BP 150/93; PULSE 73; RESP 17; TEMP 97.5; O2SAT 99
[2024-05-26 08:09] LABS: CREATINE KINASE, TOTAL 771 U/L (39-308)
[2024-05-26 08:23] VITALS: BP 150/93; PULSE 73
[2024-05-26] MEDS: POTASSIUM CHLORIDE 10 MEQ TABER PO SCH (08:25)
[2024-05-26] MEDS ORDERED: LORA-476 PO (09:45)
[2024-05-26] MEDS ORDERED: THIA-34 PO (09:45)
[2024-05-26] MEDS ORDERED: Potassium Chloride PO (09:45)
[2024-05-26] MEDS ORDERED: PANT40EC PO (09:45)
[2024-05-26] MEDS ORDERED: FOLI1TAB90 PO (09:45)
[2024-05-31 12:08] LABS: CK-BB 0 % (0); CK-MB 0 % (0-3); Macro Type 2 0 % (Not Observed)
[2024-06-03 09:40] LABS: CK-MM 96 % (97 - 100); Macro Type 1 4 % (Not Observe)
== END 2024-05-26 11:55 | disposition home or self-care (01) | DRG 282 ==
LOC: MED 13:10 → MTU 17:39
PROVIDERS: ADMIT Hospitalist; ATTEND Hospitalist
DX: K85.90 Acute pancreatitis without necrosis or infection, unspecified (principal); M62.82 Rhabdomyolysis; E87.6 Hypokalemia; F10.139 Alcohol abuse with withdrawal, unspecified; R74.01 Elevation of levels of liver transaminase levels; Z59.00 Homelessness unspecified; Z79.899 Other long term (current) drug therapy
CPT/HCPCS: 36415; 71045; 80048; 80053; 80076; 80305; 81001; 82009; 82550; 82552; 82553; 83690; 85025; 87081; 87086; 93005; 96361; 96374; 96375; 99285; G0482; J2060; J2470